=== PATIENT | male | born 2000 | race Caucasian/White ===

== ENCOUNTER 2024-03-21 13:09 | Emergency (ER) | payer OTHER, SELFPAY ==
[2024-03-21 13:19] VITALS: BP 132/84; PULSE 86; RESP 16; TEMP 36.8; O2SAT 99; BMI 22.8
== END 2024-03-21 19:01 | disposition left against medical advice (07) ==
PROVIDERS: Emergency Provider Emergency Medicine
DX: R10.9 Unspecified abdominal pain (principal)
CPT/HCPCS: 99281